=== PATIENT | male | born 2000 | race Two or more races ===

== ENCOUNTER 2023-04-05 11:32 | Emergency (ER) | payer MEDICAID ==
[~2023-04-05] VITALS: Ht 157.5 cm; Wt 59.0 kg
[2023-04-05 11:55] VITALS: BP 123/70; TEMP 98.3
[2023-04-05] MEDS ORDERED: CLIN50GE6 TP (12:14)
[2023-04-05 12:41] VITALS: O2SAT 98
== END 2023-04-05 12:42 | disposition home or self-care (01) ==
LOC: ER 11:46
DX: L70.9 Acne, unspecified (principal)